=== PATIENT | female | born 1970 | race Caucasian/White ===

== ENCOUNTER 2017-02-17 08:57 | Emergency (ER) | payer BC ==
[2017-02-17] MEDS ORDERED: Tetan/Diph/Pertus SYR(Tdap)* 0.5 ML SYR(BOOSTRIX) use SYR IM ONE (09:58)
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
--- NOTE | 2017-02-17 10:50 | RAD ---
INDICATION: Dog bite COMPARISON: None TECHNIQUE: AP, lateral, and oblique views were obtained. FINDINGS: There is underlying osteopenia with interphalangeal joint space narrowing. There are no acute bony findings. There is no foreign body. IMPRESSION: NO FRACTURE OR FOREIGN BODY
[2017-02-17 11:31] VITALS: BP 120/78
== END 2017-02-17 11:31 | disposition home or self-care (01) ==
LOC: UCEAST 08:57
DX: S61.315A Laceration without foreign body of left ring finger with damage to nail, initial encounter (principal); Z88.6 Allergy status to analgesic agent; S61.213A Laceration without foreign body of left middle finger without damage to nail, initial encounter; W54.0XXA Bitten by dog, initial encounter; Y92.9 Unspecified place or not applicable; S63.617A Unspecified sprain of left little finger, initial encounter
CPT/HCPCS: 12001; 90471; 90715; 99213; G0463

== ENCOUNTER 2017-07-10 07:15 | Emergency (ER) | payer BC ==
[2017-07-10] MEDS ORDERED: Ketorolac INJ* 30 MG/ML 1 ML VIAL IV ONE (07:43)
[2017-07-10] MEDS ORDERED: Ondansetron INJ* 2 MG/ML VIAL IV ONE (07:43)
[2017-07-10] MEDS ORDERED: NS 0.9% 1000 ML* 1,000 ML IV ONE (07:43)
[2017-07-10 08:27] LABS: ABS Basophils 0 10^3/ul (0-0.2); ABS Eosinophils 0.1 10^3/ul (0-0.6); ABS Lymphocytes 1.5 10^3/ul (1.0-4.8); ABS Monocytes 0.4 10^3/ul (0-0.8); ABS Nucleated RBC 0 10^3/ul; Eosinophil % 1.3 % (0-6); Hematocrit 39 % (35-47); Hemoglobin 13.3 g/dl (12.0-16.0); Lymphocyte % 25.4 % (25-47); Mean Corpuscular HGB Conc 34 g/dl (31-36); Mean Corpuscular Hemoglobin 28 pg (27-31); Mean Corpuscular Volume 84 fL (80-97); Mean Platelet Volume 7 um3 (7.4-10.4); Nucleated Red Blood Cells % 0; Platelet Count 263 10^3/ul (150-450); Red Blood Count 4.68 10^6/ul (4.0-5.4); Red Cell Distribution Width 15 % (10.5-15); White Blood Count 6.1 10^3/ul (3.5-10.8)
[2017-07-10 08:29] LABS: EGFR Non-African American 64.9 (>60)
[2017-07-10 08:55] LABS: Urine Appearance Clear; Urine Blood Negative (Negative); Urine Color Straw; Urine Ketones Negative (Negative); Urine Protein Negative (Negative); Urine Specific Gravity 1.005 (1.010-1.030); Urine Urobilinogen Negative (Negative)
[2017-07-10] MEDS ORDERED: Iohexol 300* (CONTRAST) 10 ML SDV IV ONE (10:05)
--- NOTE | 2017-07-10 11:02 | RAD ---
HISTORY: Right flank pain COMPARISONS: July 28, 2009 CT TECHNIQUE: Multiple transverse and longitudinal ultrasound images were obtained of the right upper quadrant of the abdomen using grayscale and color Doppler imaging. FINDINGS: LIVER: The liver is diffusely echogenic and coarse in echotexture, with decreased acoustic transmission. The liver is otherwise normal in shape, size, and contour. There is normal hepatopedal flow of the portal vein on Doppler imaging. BILIARY TREE: There is no intrahepatic or extrahepatic biliary dilatation. The common duct measures 0.5 cm. GALLBLADDER: The gallbladder is distended. Multiple shadowing echogenic foci consistent with gallstones are noted. There is no gallbladder wall thickening, pericholecystic fluid, or sonographic Jose sign. PANCREAS: The head of the pancreas is unremarkable. The tail of the pancreas is not well visualized secondary to overlying bowel gas. RIGHT KIDNEY: The right kidney is normal in shape, size, contour, and echogenicity. There is no hydronephrosis or nephrolithiasis. The right kidney measures 11.5 x 5.5 x 5 cm. AORTA AND IVC: The aorta and IVC are unremarkable. FLUID: There are no pleural effusions. There is no free fluid within the hepatorenal recess. OTHER FINDINGS: None. IMPRESSION: 1. CHOLELITHIASIS WITHOUT SONOGRAPHIC FEATURES OF ACUTE CHOLECYSTITIS. 2. FATTY INFILTRATION OF LIVER.
--- NOTE | 2017-07-10 12:14 | RAD ---
CLINICAL HISTORY: Right lower quadrant pain, status post hysterectomy, status post appendectomy COMPARISON: July 28, 2009 TECHNIQUE: Multiple contiguous axial CT scans were obtained of the abdomen and pelvis after the administration of intravenous contrast. Coronal and sagittal multiplanar reformations are submitted for review. Oral contrast was administered. Delayed images were obtained through the abdomen and pelvis. FINDINGS: LUNG BASES: The lung bases are clear. LIVER: The liver is diffusely low in attenuation compared to the spleen. There is a hypervascular lesion of the right lobe of liver on axial image 13 measuring 2.1 cm in size.. BILE DUCTS: There is no intrahepatic or extrahepatic biliary dilatation. GALLBLADDER: The gallbladder is normal, without pericholecystic inflammatory change. PANCREAS: The pancreas is normal, without mass or ductal dilatation. SPLEEN: Normal in size and appearance. UPPER GI TRACT: Evaluation of the gastrointestinal tract is limited by incomplete gastric distention. The upper GI tract is unremarkable. SMALL BOWEL AND MESENTERY: The small bowel is normal in contour, course, and caliber. There is no obstruction or dilatation. COLON: There are scattered diverticula of the distal colon. There is mucosal thickening of the sigmoid colon best seen on coronal image 43 and axial image 65. Surgical clips are noted along the right lower quadrant. ADRENALS: Normal bilaterally. KIDNEYS: The kidneys are normal in shape, size, contour, and axis. There is no hydronephrosis or nephrolithiasis. BLADDER: The bladder is smooth in contour. PELVIC ORGANS: The patient is status post hysterectomy. There is a 2.3 cm simple right ovarian cyst. There is a 1.8 cm simple left ovarian cyst. AORTA: The aorta is normal. IVC: Unremarkable LYMPH NODES: There is no lymphadenopathy by size criteria. ABDOMINAL WALL: There is diastasis recti with a small fat-containing umbilical hernia. BONES AND SOFT TISSUES: Mild degenerative changes are noted. OTHER: None IMPRESSION: 1. THERE ARE SCATTERED DIVERTICULA OF THE DISTAL COLON. 2. THERE IS FOCAL MUCOSAL THICKENING OF THE SIGMOID COLON. WHILE THIS MAY BE AN ARTIFACT OF INCOMPLETE DISTENTION, COLONIC MUCOSAL NEOPLASM MAY ALSO GIVE A SIMILAR APPEARANCE. RECOMMEND CONSIDERATION CORRELATION WITH DIRECT VISUALIZATION. 3. THE PATIENT IS STATUS POST HYSTERECTOMY. SIMPLE OVARIAN CYSTS ARE NOTED BILATERALLY. 4. FATTY INFILTRATION OF LIVER. 5. THERE IS A HYPERVASCULAR LESION OF THE RIGHT LOBE OF LIVER. 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 IF THERE IS CLINICAL CONCERN FOR HEPATOCELLULAR NEOPLASM, CONSIDER FURTHER EVALUATION WITH MULTIPHASE CONTRAST ENHANCED LIVER PROTOCOL CT, CONTRAST-ENHANCED MRI OF THE ABDOMEN, AND/OR CORRELATION WITH SERUM AFP LEVELS IN THE NONACUTE SETTING.
[2017-07-10] MEDS ORDERED: HYDROcodone/ACETAMIN 5-325 MG* 1 TAB PO ONE (15:03)
[2017-07-10 15:21] VITALS: BP 145/85
--- NOTE | 2017-07-11 20:31 | ED ---
Rakan Manning Natalie, scribed for Jojo Vaca MD on 07/10/17 at 1031 . Abdominal Pain/Female - HPI Summary HPI Summary: The patient is a 47 y/o F presenting to the ED c/o RLQ flank pain starting one day ago. She describes the pain as a stitch in side, and it is sore to the touch. The pain started off as mild, but has worsened throughout the night, becoming a sharp stabbing pain with rolling waves that back off.The pain does not radiate. She says there was not a comfortable spot to sleep in, and the pain is intensified when she lies on her left side. The pain at its worse is an 8/10, but she is currently not in pain until she moves, when it is rated 6/10. She also claims she is nauseous, but has not vomited. She hasnt had a fever, hematuria, or blood in stool. The patient has never had a similar pain except when she had an appendectomy about 7 years ago. She still has her gallbladder, and has never had any issues with it before. She does not have hx of kidney stones, but she has FHx of kidney stones in uncle. She had hysterectomy. The patient is allergic to latex and codeine. - History of Current Complaint Chief Complaint: EDAbdPain Stated Complaint: LOWER RIGHT ABD PAIN Time Seen by Provider: 07/10/17 07:42 Hx Obtained From: Patient Hx Last Menstrual Period: 10/19/30 Onset/Duration: Sudden Onset, Lasting Hours, Still Present Timing: Constant Severity Initially: Mild Severity Currently: Severe Pain Intensity: 8 Pain Scale Used: 0-10 Numeric Location: Discrete At: RLQ Radiates: No Character: Other: - "stitch in side","sharp stabbing with rolling waves that back off" Aggravating Factor(s): Other: - lying on left side Alleviating Factor(s): Other: - sitting still and upright Associated Signs and Symptoms: Positive: Nausea. 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 Denies: Hx Anticoagulant Therapy, Hx Diabetes, Hx Thyroid Disease Cardiovascular History: Denies: Hx Hypertension, Hx Pacemaker/ICD, Other Cardiovascular Problems/ Disorders Respiratory History: Denies: Hx Asthma, Hx Chronic Obstructive Pulmonary Disease (COPD), Other Respiratory Problems/Disorders GI History: Reports: Other GI Disorders - CHRONIC CONSTIPATION History: Reports: Other Problems/Disorders - EXCESSIVE MENSTRUATION FOR PAST 2 YRS Denies: Hx Renal Disease Musculoskeletal History: Reports: Other Musculoskeletal History - LEFT ACHILLES TENDON 4 YRS AGO Sensory History: Reports: Hx Contacts or Glasses - GLASSES Denies: Hx Hearing Aid Opthamlomology History: Reports: Hx Contacts or Glasses - GLASSES Neurological History: Denies: Hx Dementia, Hx Seizures Psychiatric History: Denies: Hx Panic Disorder, Hx Substance Abuse - Cancer History Hx Chemotherapy: No Hx Radiation Therapy: No - Surgical History Surgery Procedure, Year, and Place: APPENDECTOMY-07/2010- [facility] – [place]. TONSILLECTOMY A CHILD- [place]. /TUBAL- 2000- [facility] [place]. LEFT ACHILLES REPAIR- 06/28/12 - [facility] – [place]. ABLATION- 09/2014- [facility] [place]. Hysterectomy Hx Anesthesia Reactions: Yes - NAUSEA POST APPENDECTOMY - Immunization History Date of Tetanus Vaccine: <10 years Date of Influenza Vaccine: None Infectious Disease History: No Infectious Disease History: Denies: Hx Hepatitis, Hx Human Immunodeficiency Virus (HIV), Traveled Outside the in Last 30 Days - Family History Known Family History: Positive: Hypertension, Other - uncle with kidney stones - Social History Alcohol Use: Occasionally Alcohol Amount: 2 GLASSES WINE/MONTH Substance Use Type: Reports: None Smoking Status (MU): Never Smoked Tobacco Have You Smoked in the Last Year: No Review of Systems Negative: Fever Positive: Abdominal Pain - RLQ, Nausea. Negative: Vomiting, Other - blood in stool Negative: hematuria All Other Systems Reviewed And Are Negative: Yes Physical Exam Triage Information Reviewed: Yes Vital Signs On Initial Exam: Initial Vitals Temp Pulse Resp BP Pulse Ox 99.3 F 73 18 145/78 97 07/10/17 07:22 07/10/17 07:22 07/10/17 07:22 07/10/17 07:22 07/10/17 07:22 Vital Signs Reviewed: Yes Appearance: Positive: Well-Appearing, No Pain Distress, Well-Nourished Skin: Positive: Warm, Skin Color Reflects Adequate Perfusion Head/Face: Positive: Normal Head/Face Inspection Eyes: Positive: Conjunctiva Clear ENT: Positive: Normal ENT inspection Neck: Positive: Supple Respiratory/Lung Sounds: Positive: Other - Lungs clear, Normal breath sounds, no respiratory distress Cardiovascular: Positive: Other - RRR, No murmur, pulses normal, brisk capillary refill Abdomen Description: Positive: Soft, Other: - tenderness to palpitation in RLQ Bowel Sounds: Positive: Present Musculoskeletal: Positive: Strength/ROM Intact Neurological: Positive: Other - Alert, muscle tone normal, facial symmetry, speech normal, sensory/motor intact Psychiatric: Positive: Normal Diagnostics - Vital Signs Vital Signs Temp Pulse Resp BP Pulse Ox 07/10/17 09:00 76 144/87 98 07/10/17 08:30 71 143/80 96 07/10/17 08:00 74 96 07/10/17 07:47 75 96 07/10/17 07:46 146/87 07/10/17 07:22 99.3 F 73 18 145/78 97 - Laboratory Lab Results: Lab Results 07/10/17 07/10/17 07/10/17 Range/Units 07:58 07:58 07:58 WBC 6.1 (3.5-10.8) 10^3/ul RBC 4.68 (4.0-5.4) 10^6/ul Hgb 13.3 (12.0-16.0) g/dl Hct 39 (35-47) % MCV 84 (80-97) fL MCH 28 (27-31) pg MCHC 34 (31-36) g/dl RDW 15 (10.5-15) % Plt Count 263 (150-450) 10^3/ul MPV 7 L (7.4-10.4) um3 Neut % (Auto) 65.6 (38-83) % Lymph % (Auto) 25.4 (25-47) % [place] % (Auto) 7.3 (1-9) % Eos % (Auto) 1.3 (0-6) % Baso % (Auto) 0.4 (0-2) % Absolute Neuts (auto) 4.0 (1.5-7.7) 10^3/ul Absolute Lymphs (auto) 1.5 (1.0-4.8) 10^3/ul Absolute Monos (auto) 0.4 (0-0.8) 10^3/ul Absolute Eos (auto) 0.1 (0-0.6) 10^3/ul Absolute Basos (auto) 0 (0-0.2) 10^3/ul Absolute Nucleated RBC 0 10^3/ul Nucleated RBC % 0 Sodium 136 (133-145) mmol/L Potassium 4.1 (3.5-5.0) mmol/L Chloride 105 (101-111) mmol/L Carbon Dioxide 23 (22-32) mmol/L Anion Gap 8 (2-11) mmol/L BUN 22 (6-24) mg/dL Creatinine 0.92 (0.51-0.95) mg/dL Est GFR ( Amer) 83.4 (>60) Est GFR (Non-Af Amer) 64.9 (>60) BUN/Creatinine Ratio 23.9 H (8-20) Glucose 103 H (70-100) mg/dL Lactic Acid 1.2 (0.5-2.0) mmol/L Calcium 9.1 (8.6-10.3) mg/dL Magnesium 2.4 (1.9-2.7) mg/dL Total Bilirubin 0.40 (0.2-1.0) mg/dL AST 16 (13-39) U/L ALT 13 (7-52) U/L Alkaline Phosphatase 45 (34-104) U/L Total Creatine Kinase 189 (10-223) U/L C-Reactive Protein 23.96 H (< 5.00) mg/L Total Protein 7.1 (6.4-8.9) g/dL Albumin 4.0 (3.2-5.2) g/dL Globulin 3.1 (2-4) g/dL Albumin/Globulin Ratio 1.3 (1-3) Amylase 22 L (29-103) U/L Lipase 12 (11.0-82.0) U/L Beta HCG, Quant < 0.60 mIU/mL Urine Color Urine Appearance Urine pH (5-9) Ur Specific [place] (1.010-1.030) Urine Protein (Negative) Urine Ketones (Negative) Urine Blood (Negative) Urine Nitrate (Negative) Urine Bilirubin (Negative) Urine Urobilinogen (Negative) Ur Leukocyte Esterase (Negative) Urine Glucose (Negative) 07/10/17 Range/Units 08:10 WBC (3.5-10.8) 10^3/ul RBC (4.0-5.4) 10^6/ul Hgb (12.0-16.0) g/dl Hct (35-47) % MCV (80-97) fL MCH (27-31) pg MCHC (31-36) g/dl RDW (10.5-15) % Plt Count (150-450) 10^3/ul MPV (7.4-10.4) um3 Neut % (Auto) (38-83) % Lymph % (Auto) (25-47) % [place] % (Auto) (1-9) % Eos % (Auto) (0-6) % Baso % (Auto) (0-2) % Absolute Neuts (auto) (1.5-7.7) 10^3/ul Absolute Lymphs (auto) (1.0-4.8) 10^3/ul Absolute Monos (auto) (0-0.8) 10^3/ul Absolute Eos (auto) (0-0.6) 10^3/ul Absolute Basos (auto) (0-0.2) 10^3/ul Absolute Nucleated RBC 10^3/ul Nucleated RBC % Sodium (133-145) mmol/L Potassium (3.5-5.0) mmol/L Chloride (101-111) mmol/L Carbon Dioxide (22-32) mmol/L Anion Gap (2-11) mmol/L BUN (6-24) mg/dL Creatinine (0.51-0.95) mg/dL Est GFR ( Amer) (>60) Est GFR (Non-Af Amer) (>60) BUN/Creatinine Ratio (8-20) Glucose (70-100) mg/dL Lactic Acid (0.5-2.0) mmol/L Calcium (8.6-10.3) mg/dL Magnesium (1.9-2.7) mg/dL Total Bilirubin (0.2-1.0) mg/dL AST (13-39) U/L ALT (7-52) U/L Alkaline Phosphatase (34-104) U/L Total Creatine Kinase (10-223) U/L C-Reactive Protein (< 5.00) mg/L Total Protein (6.4-8.9) g/dL Albumin (3.2-5.2) g/dL Globulin (2-4) g/dL Albumin/Globulin Ratio (1-3) Amylase (29-103) U/L Lipase (11.0-82.0) U/L Beta HCG, Quant mIU/mL Urine Color Straw Urine Appearance Clear Urine pH 6.0 (5-9) Ur Specific [place] 1.005 L (1.010-1.030) Urine Protein Negative (Negative) Urine Ketones Negative (Negative) Urine Blood Negative (Negative) Urine Nitrate Negative (Negative) Urine Bilirubin Negative (Negative) Urine Urobilinogen Negative (Negative) Ur Leukocyte Esterase Negative (Negative) Urine Glucose Negative (Negative) Result Diagrams: 07/10/17 07:58 07/10/17 07:58 Lab Statement: Any lab studies that have been ordered have been reviewed, and results considered in the medical decision making process. - CT Abd/Pel CT Interpretation: Positive (See Comments) - 1. There are scattered diverticula of the distal colon. 2. There is focal mucosal thickening of the sigmoid colon. While this may be an artifact Of incomplete distention, colonic mucosal neoplasm may also give a similar appearance. Recommend consideration correlation with direct visualization. 3. The patient is status post hysterectomy. Simple ovarian cysts are noted bilaterally. 4. Fatty infiltration of liver. 5. There is a hypervascular lesion of the right lobe of liver. In the absence of clinical risk factors for hepatocellular carcinoma, this most likely represents a flash filling hemangioma. If there is clinical concern for hepatocellular neoplasm, consider further evaluation with multiphase contrast enhanced liver protocol CT, contrast-enhanced MRI of the abdomen, and/or correlation with serum AFP levels in the nonacute setting. ED physician has reviewed this report. CT Interpretation Completed By: Radiologist - Ultrasound No standard instances Ultrasound Interpretation: No Acute Changes - Gallbladder: 1. Cholelithiasis without sonographic features of acute cholecystitis. 2. Fatty infiltration of liver. ED physician has reviewed this report. Ultrasound Interpretation Completed By: Radiologist Re-Evaluation - Re-Evaluation First Eval Re-Evaluation Time: 14:45 - I spoke with the patient concerning the results of her CT and US. The patient will be discharged home. Pt is agreeable with this plan. Change: Unchanged Abdominal Pain Fem Course/Dx - Course Course Of Treatment: Allergies noted. Pt medications reviewed this visit. Gallbladder US results show possibility of hepatocellular carcinoma. The patient is diagnosed with gallstones and acute abdomincal pain. She will be discharged home with a prescription for Hydrocodone. Patient is agreeable with this plan. - Diagnoses Provider Diagnoses: Gallstones, Acute abdominal pain Discharge - Discharge Plan Condition: Stable Disposition: HOME Prescriptions: HYDROcodone/ACETAMIN 5-325 MG* [[place] 5-325 TAB*] 1 tab PO Q4H PRN #18 tab MDD 6 PRN Reason: Pain - Severe Patient Education Materials: Gallstones (ED), Acute Abdominal Pain (ED) Referrals: Dilan Mortensen, CNA INSTRUCTOR [Primary Care Provider] - 2 Days Additional Instructions: We have given you a copy of your labs, ultrasound and CT and we have discussed this. You need definite follow up with Noelle Mortensen, Dr. Villalta, Dr. Crockett and Dr. Corado. The radiologist is recommending further studies if indicated and also an [id number] (AFP) level (blood test). If you have increased pain, vomiting, fever or any new or worsening symptoms, return to the ER. We sent a prescription for hydrocodone/acetaminophen to [facility], if you have severe pain. The documentation as recorded by the Rakan dubose Natalie accurately reflects the service I personally performed and the decisions made by me, Jojo Vaca MD.
== END 2017-07-10 15:20 | disposition home or self-care (01) ==
LOC: MERGE 07:15 → ED 07:15
DX: K80.20 Calculus of gallbladder without cholecystitis without obstruction (principal); K76.0 Fatty (change of) liver, not elsewhere classified; K76.9 Liver disease, unspecified; K57.30 Diverticulosis of large intestine without perforation or abscess without bleeding; N83.292 Other ovarian cyst, left side; N83.291 Other ovarian cyst, right side; Z88.5 Allergy status to narcotic agent; Z90.710 Acquired absence of both cervix and uterus
CPT/HCPCS: 36415; 74177; 76705; 80053; 81003; 82150; 82550; 83605; 83690; 83735; 84702; 85025; 86140; 96374; 96375; 99283; J1885; J2405; Q9967